=== PATIENT | female | born 1955 | race Caucasian/White ===

== ENCOUNTER 2016-10-02 12:26 | Inpatient (IN) | payer BC, OTHER ==
[2016-10-02] MEDS ORDERED: SODIUM CHLORIDE 0.9% 1,000 ML IV STA (13:04)
[2016-10-02] MEDS ORDERED: PANTOPRAZOLE 40 MG/10 ML VIAL IVP STA (13:04)
--- NOTE | 2016-10-02 13:07 | ED ---
General Adult HPI - General Chief complaint: Abdominal Pain Stated complaint: blood in stool Time Seen by Provider: 10/02/16 12:48 Source: patient, RN notes reviewed Mode of arrival: ambulatory Limitations: no limitations - History of Present Illness Initial comments: Patient's a 61-year-old female who presents emergency room today with chief complaint of loose stool over the last or days. Does admit that over the last day she believe she seen some evidence of blood. States she's been something that's been pink color in the toilet. She does admit that time she's felt nauseated. Does admit some cramping in her abdomen both on left right sides. States she's never had similar symptoms in the this in the past. She states she 's not on any medications at home. Denies any past mental history. Denies any other complaints. Patient denies any recent fever, chills, shortness of breath, chest pain, back pain, abdominal pain, nausea or vomiting, numbness or tingling , dysuria or hematuria, constipation or diarrhea, headaches or visual changes, or any other complaints. - Related Data Home Medications Medication Instructions Recorded Confirmed Dorzolamide 2% [Trusopt 2%] 1 drops BOTH EYES BID 10/02/16 10/02/16 Lactobacillus Acidophilus 1 tab PO DAILY 10/02/16 10/02/16 [Acidophilus] Allergies Allergy/AdvReac Type Severity Reaction Status Date / Time No Known Allergies Allergy Verified 10/02/16 13:38 Review of Systems ROS Statement: Those systems with pertinent positive or pertinent negative responses have been documented in the HPI. ROS Other: All systems not noted in ROS Statement are negative. Past Medical History Past Medical History: No Reported History History of Any Multi-Drug Resistant Organisms: None Reported Past Surgical History: Section Additional Past Surgical History / Comment(s): polyp removal. Past Psychological History: No Psychological Hx Reported Smoking Status: Never smoker Past Alcohol Use History: Occasional Past Drug Use History: None Reported General Exam - General Exam Comments Initial Comments: General: The patient is awake and alert, in no distress, and does not appear acutely ill. Eye: Pupils are equal, round and reactive to light, extra-ocular movements are intact. No nystagmus. There is normal conjunctiva bilaterally. No signs of icterus. Ears, nose, mouth and throat: There are moist mucous membranes and no oral lesions. Neck: The neck is supple, there is no tenderness or JVD. Cardiovascular: There is a regular rate and rhythm. No murmur, rub or gallop is appreciated. Respiratory: Lungs are clear to auscultation, respirations are non-labored, breath sounds are equal. No wheezes, stridor, rales, or rhonchi. Gastrointestinal: Normal appearance and. Normal bowel sounds. Abdomen soft on palpation. Mild tenderness both left and right side of the abdomen on palpation. No rebound tenderness. No guarding. No CVA tenderness. Musculoskeletal: Normal ROM, no tenderness. Strength 5/5. Sensation intact. Pulses equal bilaterally 2+. Neurological: A&O x 3. CN II-XII intact, There are no obvious motor or sensory deficits. Coordination appears grossly intact. Speech is normal. Skin: Skin is warm and dry and no rashes or lesions are noted. Psychiatric: Cooperative, appropriate mood & affect, normal judgment. Limitations: no limitations Course Vital Signs 10/02/16 10/02/16 12:33 15:41 Temperature 97.2 F L Pulse Rate 88 68 Respiratory 16 16 Rate Blood Pressure 140/87 139/67 O2 Sat by Pulse 100 99 Oximetry Medical Decision Making - Medical Decision Making Patient's CT reviewed shows possible colitis. Bradycardia enhancement of the na pain on the left may represent a shunt phenomena. Possible left adrenal adenoma also seen. Hepatomegaly, and fatty protrusion of the liver. Patient's labs reviewed. Positive guaiac. Case discussed with attending physician Dr. Cramer who did discuss case with [facility] physician Dr. Mirza. Patient will be admitted to the hospital. She is aware of plan states understanding. - Lab Data Result diagrams: 10/02/16 13:30 10/02/16 13:30 Lab Results 10/02/16 10/02/16 10/02/16 Range/Units 13:10 13:10 13:30 WBC (3.8-10.6) k/uL RBC (3.80-5.40) m/uL Hgb (11.4-16.0) gm/dL Hct (34.0-46.0) % MCV (80.0-100.0) fL MCH (25.0-35.0) pg MCHC (31.0-37.0) g/dL RDW (11.5-15.5) % Plt Count (150-450) k/uL Neutrophils % (Manual) % Band Neutrophils % % Lymphocytes % (Manual) % Monocytes % (Manual) % Eosinophils % (Manual) % Neutrophils # (Manual) (1.3-7.7) k/uL Lymphocytes # (Manual) (1.0-4.8) k/uL Monocytes # (Manual) (0-1.0) k/uL Eosinophils # (Manual) (0-0.7) k/uL Nucleated RBCs (0-0) /100 WBC Manual Slide Review Large Platelets Anisocytosis (manual) PT (9.0-12.0) sec INR (<1.1) APTT (22.0-30.0) sec Sodium 140 (137-145) mmol/L Potassium 3.4 L (3.5-5.1) mmol/L Chloride 99 (98-107) mmol/L Carbon Dioxide 30 (22-30) mmol/L Anion Gap 11 mmol/L BUN 8 (7-17) mg/dL Creatinine 0.70 (0.52-1.04) mg/dL Est GFR (MDRD) Af Amer >60 (>60 ml/min/1.73 sqM) Est GFR (MDRD) Non-Af >60 (>60 ml/min/1.73 sqM) Glucose 105 H (74-99) mg/dL Calcium 10.0 (8.4-10.2) mg/dL Total Bilirubin 0.9 (0.2-1.3) mg/dL AST 24 (14-36) U/L ALT 29 (9-52) U/L Alkaline Phosphatase 76 (38-126) U/L Total Protein 7.7 (6.3-8.2) g/dL Albumin 4.4 (3.5-5.0) g/dL Amylase 40 (30-110) U/L Lipase 128 (23-300) U/L Urine Color Urine Appearance (Clear) Urine pH (5.0-8.0) Ur Specific [place] (1.001-1.035) Urine Protein (Negative) Urine Glucose (UA) (Negative) Urine Ketones (Negative) Urine Blood (Negative) Urine Nitrite (Negative) Urine Bilirubin (Negative) Urine Urobilinogen (<2.0) mg/dL Ur Leukocyte Esterase (Negative) Urine RBC (0-5) /hpf Urine WBC (0-5) /hpf Ur Squamous Epith Cells (0-4) /hpf Urine Mucus (None) /hpf Stool Occult Blood Positive H (Negative) C. difficile (EIA) Intrp Negative (Negative) 10/02/16 10/02/16 10/02/16 Range/Units 13:30 13:30 15:40 WBC 7.6 (3.8-10.6) k/uL RBC 4.22 (3.80-5.40) m/uL Hgb 13.8 (11.4-16.0) gm/dL Hct 39.9 (34.0-46.0) % MCV 94.7 (80.0-100.0) fL MCH 32.8 (25.0-35.0) pg MCHC 34.6 (31.0-37.0) g/dL RDW 12.8 (11.5-15.5) % Plt Count 209 (150-450) k/uL Neutrophils % (Manual) 57.0 % Band Neutrophils % 6.0 % Lymphocytes % (Manual) 21.0 % Monocytes % (Manual) 15.0 % Eosinophils % (Manual) 1.0 % Neutrophils # (Manual) 4.8 (1.3-7.7) k/uL Lymphocytes # (Manual) 1.6 (1.0-4.8) k/uL Monocytes # (Manual) 1.1 H (0-1.0) k/uL Eosinophils # (Manual) 0.1 (0-0.7) k/uL Nucleated RBCs 0 (0-0) /100 WBC Manual Slide Review Performed Large Platelets Present Anisocytosis (manual) Present PT 10.0 (9.0-12.0) sec INR 1.0 (<1.1) APTT 23.8 (22.0-30.0) sec Sodium (137-145) mmol/L Potassium (3.5-5.1) mmol/L Chloride (98-107) mmol/L Carbon Dioxide (22-30) mmol/L Anion Gap mmol/L BUN (7-17) mg/dL Creatinine (0.52-1.04) mg/dL Est GFR (MDRD) Af Amer (>60 ml/min/1.73 sqM) Est GFR (MDRD) Non-Af (>60 ml/min/1.73 sqM) Glucose (74-99) mg/dL Calcium (8.4-10.2) mg/dL Total Bilirubin (0.2-1.3) mg/dL AST (14-36) U/L ALT (9-52) U/L Alkaline Phosphatase (38-126) U/L Total Protein (6.3-8.2) g/dL Albumin (3.5-5.0) g/dL Amylase (30-110) U/L Lipase (23-300) U/L Urine Color Yellow Urine Appearance Clear (Clear) Urine pH 5.5 (5.0-8.0) Ur Specific [place] 1.041 H (1.001-1.035) Urine Protein Trace H (Negative) Urine Glucose (UA) Negative (Negative) Urine Ketones Negative (Negative) Urine Blood Trace H (Negative) Urine Nitrite Negative (Negative) Urine Bilirubin Negative (Negative) Urine Urobilinogen <2.0 (<2.0) mg/dL Ur Leukocyte Esterase Negative (Negative) Urine RBC 1 (0-5) /hpf Urine WBC <1 (0-5) /hpf Ur Squamous Epith Cells <1 (0-4) /hpf Urine Mucus Rare H (None) /hpf Stool Occult Blood (Negative) C. difficile (EIA) Intrp (Negative) Disposition Clinical Impression: Colitis Disposition: ADMITTED IP TO THIS HOSP Condition: Good Time of Disposition: 16:01
[2016-10-02 13:44] LABS: Aty Lym Flag Slight; CH 34.1; CHCM 36.2; HCT 39.9 % (34.0-46.0); HGB 13.8 gm/dL (11.4-16.0); MCH 32.8 pg (25.0-35.0); MCHC 34.6 g/dL (31.0-37.0); MCV 94.7 fL (80.0-100.0); Mean Platelet Volume 7.3; RBC 4.22 m/uL (3.80-5.40); RDW 12.8 % (11.5-15.5); WBC 7.6 k/uL (3.8-10.6); WBC (Perox) 7.56
[2016-10-02 13:53] LABS: Partial Thromboplastin Time 23.8 sec (22.0-30.0)
[2016-10-02 13:57] LABS: ALT 29 U/L (9-52); AST 24 U/L (14-36); Alkaline Phosphatase 76 U/L (38-126); Amylase 40 U/L (30-110); Anion Gap 11 mmol/L; Blood Urea Nitrogen 8 mg/dL (7-17); Carbon Dioxide 30 mmol/L (22-30); Chloride 99 mmol/L (98-107); Glucose 105 mg/dL (74-99); Non-African American GFR(MDRD) >60 (>60 ml/min/1.73 sqM); Potassium 3.4 mmol/L (3.5-5.1); Sodium 140 mmol/L (137-145); Total Bilirubin 0.9 mg/dL (0.2-1.3); Total Protein 7.7 g/dL (6.3-8.2)
--- NOTE | 2016-10-02 14:05 | XR ---
EXAMINATION TYPE: XR KUB DATE OF EXAM: 10/02/2016 2:01 PM COMPARISON: NONE HISTORY: Abdominal pain, diarrhea TECHNIQUE: One view abdominal series FINDINGS: The osseous structures are intact. The bowel gas pattern is nonspecific. There are prominent small b owel loops in the mid and upper abdomen. There is partial eventration of the left hemidiaphragm. Calc ification the pelvis or vascular. Arthropathy of the hips noted. IMPRESSION: 1. Nonspecific abdomen. Prominent bowel loops or may be on the basis of an enteritis or ileus correl ate clinically.
[2016-10-02 14:15] LABS: Add Differential Manual Differential
[2016-10-02 14:18] LABS: Manual Review Performed; Nucleated Red Blood Cells 0 /100 WBC (0-0); Total Cells Counted 100
[2016-10-02 14:19] LABS: Large Platelets Present
[2016-10-02] MEDS ORDERED: RX INFO: IV CONTRAST WAS GIVEN 1 EACH MISC MISCELLANE PRN (14:40)
--- NOTE | 2016-10-02 15:43 | CT ---
EXAMINATION TYPE: CT abdomen pelvis w con DATE OF EXAM: 10/02/2016 3:28 PM COMPARISON: Plain film same date HISTORY: Diarrhea x 6 days with nausea and generalized abdominal pain. CT DLP: 452.40 mGycm Automated exposure control for dose reduction was used. TECHNIQUE: Helical acquisition of images was performed from the lung bases through the pelvis. CONTRAST: Performed without Oral Contrast and with IV Contrast, patient injected with 100 mL of Omnipaque 300. FINDINGS: LUNG BASES: No significant abnormality is appreciated. LIVER/GB: Low-attenuation focus within the left lobe of the liver measures 4 mm on axial image 18 of questionable clinical significance. The liver shows low attenuation and is enlarged compatible with f atty infiltration. Gallbladder is normal. PANCREAS: No significant abnormality is seen. SPLEEN: No significant abnormality is seen. ADRENALS: Left adrenal gland shows a 19 mm low dense focus which statistically is likely to represent an adenoma. Right adrenal gland is normal. KIDNEYS: No significant abnormality is seen. RETROPERITONEAL ADENOPATHY: None visualized REPRODUCTIVE ORGANS: There is asymmetric enhancement, the left gonadal vein shows marked increased at tenuation as compared to the right and a gonadal vein on the left is dilated. Left adnexal region enh ances markedly. URINARY BLADDER: No significant abnormality is seen. PELVIC ADENOPATHY: None visualized. OSSEOUS STRUCTURES: Some degenerative disc changes are present in the lower lumbar spine. BOWEL: The colon shows wall thickening. Minimal free fluid in the pelvis. OTHER: Aorta shows normal caliber. IMPRESSION: CORRELATE FOR POSSIBLE COLITIS. BRIGHT ENHANCEMENT OF THE ANNALEE VEIN ON THE LEFT MAY REPRESENT A [place] PHENOMENON. POSSIBLE LEFT ADRENAL ADENOMA, MRI COULD BE PERFORMED FOR ADDITIONAL EVALUATION. HEPAT OMEGALY, FATTY INFILTRATION OF THE LIVER.
[2016-10-02 15:56] LABS: Appearance,Urine Clear (Clear); Bilirubin,Urine Negative (Negative); Glucose,Urine (UA) Negative (Negative); Ketones,Urine Negative (Negative); Leukocyte Esterase,Urine Negative (Negative); Mucus,Urine Rare /hpf; Nitrite,Urine Negative (Negative); PH, Urine 5.5 (5.0-8.0); Particle Count 872; Protein,Urine Trace (Negative); RBC,Urine 1 /hpf (0-5); Specific Gravity,Urine 1.041 (1.001-1.035); Squamous Epithelial Cell,Urine <1 /hpf (0-4); UA Billing (MACRO vs. MICRO) MICRO; Urobilinogen,Urine <2.0 mg/dL (<2.0); WBC,Urine <1 /hpf (0-5)
[2016-10-02] MEDS ORDERED: ACETAMINOPHEN TAB 325 MG TAB PO PRN (16:01)
[2016-10-02] MEDS ORDERED: SODIUM CHLORIDE 0.9% 1,000 ML IV ONE (16:01)
[2016-10-02] MEDS ORDERED: ONDANSETRON 4 MG/2 ML VIAL IVP PRN (16:01)
[2016-10-02] MEDS ORDERED: HYDROmorphone 1 MG/ML 1 ML SYRINGE IV PRN (16:01)
[2016-10-02] MEDS ORDERED: NALOXONE 0.4 MG/ML 1 ML VIAL IV PRN (16:01)
[2016-10-02] MEDS ORDERED: LEVOFLOXACIN 500MG-D5W PMX 500 MG in DEXTROSE/WATER 1 100ML.BAG IVPB STA (16:03)
[2016-10-02] MEDS ORDERED: metroNIDAZOLE-NS PMX 500 MG in SALINE 1 100ML.BAG IVPB STA (16:03)
[2016-10-02] MEDS ORDERED: TEMAZEPAM 15 MG CAP PO PRN (18:14)
[2016-10-02] MEDS ORDERED: HYDROmorphone 1 MG/ML 1 ML SYRINGE IVP PRN (18:14)
[2016-10-02] MEDS ORDERED: HYDROcodone/APAP 5-325MG 1 EACH TAB PO PRN (18:14)
--- NOTE | 2016-10-02 21:33 | HP ---
DATE OF ADMISSION: 10/02/2016 CHIEF COMPLAINT: Abdominal pain as well as GI bleeding. HISTORY OF PRESENT ILLNESS: This 61-year-old woman with a past medical history of multiple medical problems, including fibroids, history of migraines, history of cardiac arrhythmia, history of section, history of colonoscopy, being followed by Dr. Cowan in the outpatient setting, was also complaining of significant EtOH. The patient apparently takes at least 3 or 4 drinks per day, according to her. The patient was not feeling well over the past 3 to 4 days, with a sore throat and upper respiratory symptoms, and subsequently patient was noted to have diarrhea, some blood in the stools, and patient came to [facility] and was admitted for further evaluation and treatment. CT scan of the abdomen was done which showed possible colitis as well as bright enhancement of the veins on the left; may represent a shunt phenomenon. Left adrenal adenoma was also noted. MRI was also recommended, and multiple other abnormalities, including fat infiltration and hepatomegaly, were also suspected. The patient was admitted for further evaluation and treatment. There is no history of any fever, rigor, or chills. No history of any headache, loss of consciousness, seizures. PAST MEDICAL HISTORY: 1. History of fibroids. 2. History of migraines. 3. History of cardiac catheterization. 4. section. 5. Tonsillectomy. 6. History of tubal ligation. HOME MEDICATIONS: 1. Lactobacillus acidophilus. 2. Trusopt 2%. ALLERGIES: NONE. FAMILY HISTORY: History of CAD and memory impairment, Parkinson's. SOCIAL HISTORY: History of alcohol. Previous history of smoking. REVIEW OF SYSTEMS: ENT: No diminished hearing. No diminished vision. CARDIOVASCULAR SYSTEM: No angina, palpitations. RESPIRATORY: No cough, hemoptysis. GI: No nausea, vomiting. : No dysuria. NERVOUS SYSTEM: No numbness or weakness. ALLERGY/IMMUNOLOGY: No asthma or hayfever. MUSCULOSKELETAL: As mentioned earlier. HEMATOLOGY/ONCOLOGY: No history of anemia. ENDOCRINE: No history of diabetes, hypothyroidism. CONSTITUTIONAL: As mentioned earlier. DERMATOLOGY: Negative. RHEUMATOLOGY: Negative. PSYCHIATRY: As mentioned earlier. PHYSICAL EXAMINATION: Patient is alert and oriented x3. Pulse is 69, blood pressure 138/93, respiration 20, temperature 97.7, pulse ox 98% on room air. HEENT: Conjunctivae normal. Oral mucosa moist. NECK: No jugular venous distention. No carotid bruit. No lymph node enlargement. CARDIOVASCULAR SYSTEM: S1, S2 muffled. No S3. No S4. RESPIRATORY SYSTEM: Breath sounds diminished at the bases. No rhonchi. No crackles. ABDOMEN: Soft. Mild diffuse discomfort to palpation. No guarding. No rigidity. No mass palpable. No ascites. LEGS: No edema. No swelling. NERVOUS SYSTEM: Higher functions as mentioned earlier. Moves all 4 limbs. No focal motor or sensory deficit. LYMPHATICS: No lymph node palpable in neck, axillae or groin. SKIN: No ulcer, rash, bleeding. LABS: CBC within normal limits. Otherwise, PT is 10. INR is 1. Potassium is 3.4. UA noted. Stool OB is positive. Serial negative. ASSESSMENT: 1. Diarrhea, lower gastrointestinal bleed for evaluation; possible acute colitis. 2. History of ethanol. 3. Hypokalemia. 4. History of fibroids. 5. Fatty infiltration of the liver. 6. Left adrenal adenoma. 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 Rule out shunt phenomenon. 8. History of migraines. 9. History of cardiac arrhythmia. 10. History of glaucoma. 11. FULL CODE. RECOMMENDATIONS AND DISCUSSION: In this 61-year-old woman who presented with multiple complex medical issues, we will monitor the patient closely, continue the current medications, continue with symptomatic treatment. I recommend empiric antibiotics for the colitis. Flagyl has been initiated and Levaquin. Otherwise, I would recommend a gastroenterology consultation. I would also recommend potassium supplementation. Monitor fluid closely. Symptomatic treatment will be provided. Guarded prognosis because of multiple complex medical issues. Further recommendations to follow. Chronic liver damage is also a possibility, but cirrhosis seems to be unlikely at this time based on the chemistry. However, the CT finding is a concern; it could be a congenital abnormality as well. I would recommend close followup with Gastroenterology. Continue to monitor. See orders for further details. Discussed with the staff and patient, who understands and agrees. A copy of this dictation is being forwarded to Dr. Cowan, who is the primary physician. [facility] HOSPITALMariaelena
[2016-10-02] MEDS: DORZOLAMIDE HCL 2% DROPS 10 ML BTL BOTH EYES SCH (22:05)
[2016-10-03] MEDS: metroNIDAZOLE-NS PMX 500 MG in SALINE 1 100ML.BAG IVPB SCH ×3 (00:56→15:54)
[2016-10-03] MEDS: DORZOLAMIDE HCL 2% DROPS 10 ML BTL BOTH EYES SCH ×3 (07:48→22:19)
[2016-10-03] MEDS: PANTOPRAZOLE 40 MG/10 ML VIAL IV SCH (07:48)
[2016-10-03] MEDS: LACTOBACILLUS ACIDOPH & BULGAR 1 EACH PACKET PO SCH (07:49)
[2016-10-03 08:06] LABS: Basophils % (A) 1 %; CH 34.1; CHCM 35.6; Eosinophils # (A) 0.1 k/uL (0-0.7); Eosinophils % (A) 1 %; HCT 36.9 % (34.0-46.0); HDW 2.87; HGB 12.6 gm/dL (11.4-16.0); Luc # (Auto) 0.28; Luc % (Auto) 4; Lymphocytes # (A) 1.3 k/uL (1.0-4.8); Lymphocytes % (A) 20 %; MCH 32.8 pg (25.0-35.0); MCV 96.3 fL (80.0-100.0); Mean Platelet Volume 8.2; Monocytes # (A) 0.4 k/uL (0-1.0); Monocytes % (A) 6 %; Neutrophils # (A) 4.5 k/uL (1.3-7.7); Neutrophils % (A) 68 %; RBC 3.83 m/uL (3.80-5.40); RDW 12.8 % (11.5-15.5); WBC 6.6 k/uL (3.8-10.6); WBC (Perox) 7.29
[2016-10-03 08:29] LABS: ALT 23 U/L (9-52); AST 20 U/L (14-36); Alkaline Phosphatase 53 U/L (38-126); Anion Gap 11 mmol/L; Blood Urea Nitrogen 3 mg/dL (7-17); Calcium 9.2 mg/dL (8.4-10.2); Carbon Dioxide 28 mmol/L (22-30); Chloride 103 mmol/L (98-107); Glucose 102 mg/dL (74-99); Magnesium 1.4 mg/dL (1.6-2.3); Non-African American GFR(MDRD) >60 (>60 ml/min/1.73 sqM); Potassium 3.6 mmol/L (3.5-5.1); Sodium 142 mmol/L (137-145); Total Bilirubin 0.9 mg/dL (0.2-1.3); Total Protein 6.8 g/dL (6.3-8.2)
[2016-10-03 10:24] VITALS: BMI 24.9
[2016-10-03] MEDS: LEVOFLOXACIN 500MG-D5W PMX 500 MG in DEXTROSE/WATER 1 100ML.BAG IVPB SCH (17:47)
[2016-10-04] MEDS: metroNIDAZOLE-NS PMX 500 MG in SALINE 1 100ML.BAG IVPB SCH ×4 (00:35→23:20)
[2016-10-04] MEDS: DORZOLAMIDE HCL 2% DROPS 10 ML BTL BOTH EYES SCH ×2 (08:29→21:04)
[2016-10-04] MEDS: PANTOPRAZOLE 40 MG/10 ML VIAL IV SCH (09:21)
[2016-10-04] MEDS: LACTOBACILLUS ACIDOPH & BULGAR 1 EACH PACKET PO SCH (09:21)
[2016-10-04 09:59] LABS: Basophils # (A) 0.1 k/uL (0-0.2); Basophils % (A) 1 %; CH 33.5; Eosinophils # (A) 0.1 k/uL (0-0.7); Eosinophils % (A) 2 %; HCT 35.2 % (34.0-46.0); HDW 2.91; HGB 11.9 gm/dL (11.4-16.0); Luc # (Auto) 0.19; Luc % (Auto) 3; Lymphocytes # (A) 1.4 k/uL (1.0-4.8); Lymphocytes % (A) 23 %; MCH 32.4 pg (25.0-35.0); MCHC 33.7 g/dL (31.0-37.0); MCV 96.1 fL (80.0-100.0); Mean Platelet Volume 7.1; Monocytes # (A) 0.4 k/uL (0-1.0); Monocytes % (A) 6 %; Neutrophils % (A) 66 %; RBC 3.67 m/uL (3.80-5.40); RDW 12.8 % (11.5-15.5); WBC 6.1 k/uL (3.8-10.6); WBC (Perox) 6.61
[2016-10-04 10:06] LABS: Anion Gap 9 mmol/L; Blood Urea Nitrogen 3 mg/dL (7-17); Calcium 9.2 mg/dL (8.4-10.2); Carbon Dioxide 26 mmol/L (22-30); Chloride 109 mmol/L (98-107); Glucose 101 mg/dL (74-99); Non-African American GFR(MDRD) >60 (>60 ml/min/1.73 sqM); Potassium 3.5 mmol/L (3.5-5.1); Sodium 144 mmol/L (137-145)
--- NOTE | 2016-10-04 10:19 | PN ---
DATE OF SERVICE: 10/03/2016 This 61-year-old woman who was admitted with abdominal pain and diarrhea, was thought to have acute colitis. Gastroenterology is following the patient closely. Otherwise, the patient also had a left adrenal adenoma, possibly benign in nature. The patient also had cardinal vein, possibly shunt phenomenon according to the chart. PAST MEDICAL HISTORY: Reviewed. REVIEW OF SYSTEM: CARDIOVASCULAR: No angina or palpitations. GI: As mentioned. : As mentioned. No distention. NERVOUS SYSTEM: No deficits. MEDICATIONS: Reviewed and include: 1. Tylenol 650 every 6 p.r.n. 2. Tippo 5 mg p.r.n. 3. Trusopt 1 drop b.i.d. 4. Dilaudid 0.5 mg every 6 hours. 5. Lactinex 1 daily. 6. Levaquin 500 mg daily. 7. Flagyl 500 mg every 8 hours. 8. Narcan. 9. Zofran. 10. Protonix. 11. Restoril. PHYSICAL EXAMINATION: Alert, oriented x3. VITAL SIGNS: Pulse 80, blood pressure 120/84, respirations 16, temperature 98.6, pulse ox 97% on room air. HEENT: Conjunctivae normal. NECK: No JVD. CARDIOVASCULAR: S1 and S2 muffled. LUNGS: Breath sounds diminished at the bases. Bilateral scattered rhonchi and crackles. ABDOMEN: Soft. Mild diffuse discomfort. No guarding or rigidity. No masses palpable. EXTREMITIES: Legs no edema. NERVOUS SYSTEM: Higher functions as mentioned. Moves all extremities. No focal deficits. LYMPHATICS: No lymph nodes palpable in the neck, axillae or groin. LABS: WBC 6.3, hemoglobin is 12.6, BUN 3, glucose 102. Drug screen positive for urine and opiates and influence is negative. ASSESSMENT: 1. Diarrhea, lower gastrointestinal bleeding, possible acute colitis. 2. History of EtOH. 3. Hypokalemia. 4. History of fibroids. 5. Fatty infiltration of the liver. 6. Left adrenal adenoma, possibly benign. 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 8. History of migraines. 9. Rule out cirrhosis of the liver. 10. History of cardiac arrhythmia. 11. History of glaucoma. 12. FULL CODE. RECOMMENDATIONS: Recommend to continue current medications, monitoring and symptomatic treatment. Otherwise continue with fluids and electrolytes closely. Empiric antibiotics. Otherwise, repeat labs. Gastroenterology evaluation with Dr. Cespedes. Discussed, the patient understands. Further recommendations to follow.
[2016-10-04] MEDS ORDERED: MAGNESIUM HYDROXIDE 2,400 MG/10 ML CUP PO PRN (15:07)
[2016-10-04] MEDS ORDERED: DOCUSATE 100 MG CAP PO PRN (15:07)
[2016-10-04] MEDS ORDERED: FUROSEMIDE 10 MG/ML 2 ML VIAL IV ONE (16:55)
[2016-10-04] MEDS: LEVOFLOXACIN 500MG-D5W PMX 500 MG in DEXTROSE/WATER 1 100ML.BAG IVPB SCH (19:20)
[2016-10-05 07:39] VITALS: BP 107/63; PULSE 62; RESP 20; TEMP 98.3
[2016-10-05] MEDS: DORZOLAMIDE HCL 2% DROPS 10 ML BTL BOTH EYES SCH (08:11)
[2016-10-05] MEDS: PANTOPRAZOLE 40 MG/10 ML VIAL IV SCH (08:11)
[2016-10-05] MEDS: metroNIDAZOLE-NS PMX 500 MG in SALINE 1 100ML.BAG IVPB SCH (08:12)
[2016-10-05] MEDS: LACTOBACILLUS ACIDOPH & BULGAR 1 EACH PACKET PO SCH (08:12)
[2016-10-05 09:49] LABS: Basophils # (A) 0.1 k/uL (0-0.2); Basophils % (A) 1 %; CH 33.6; CHCM 35.1; Eosinophils # (A) 0.1 k/uL (0-0.7); Eosinophils % (A) 2 %; HCT 35.5 % (34.0-46.0); HDW 2.89; HGB 12.2 gm/dL (11.4-16.0); Luc # (Auto) 0.19; Luc % (Auto) 3; Lymphocytes # (A) 1.5 k/uL (1.0-4.8); Lymphocytes % (A) 26 %; MCHC 34.3 g/dL (31.0-37.0); MCV 96.1 fL (80.0-100.0); Mean Platelet Volume 6.9; Monocytes # (A) 0.3 k/uL (0-1.0); Monocytes % (A) 6 %; Neutrophils # (A) 3.5 k/uL (1.3-7.7); Neutrophils % (A) 62 %; RDW 12.9 % (11.5-15.5); WBC 5.6 k/uL (3.8-10.6); WBC (Perox) 5.86
--- NOTE | 2016-10-05 10:38 | PN ---
DATE OF SERVICE: 10/04/2016 This 61-year-old woman who was admitted with diarrhea, lower gastrointestinal bleeding, also had possible acute colitis, the patient also was history of ETOH also. No chest or palpitation. No fever. On exam alert and oriented times three. Pulse 68, blood pressure 127/60, respiratory rate 16, temperature 97.4. Pulse ox 99% on room air. HEENT: Conjunctivae normal. NECK: No jugular venous distention. CARDIOVASCULAR: S1, S2 muffled. RESPIRATORY: Breath sounds diminished in the bases. No rhonchi, no crackles. ABDOMEN: Soft, nontender. Mild diffuse discomfort. Nontender. No mass palpable. LEGS: No edema. No swelling. CENTRAL NERVOUS SYSTEM: No focal deficits. LABS: WBC 6.9. Hemoglobin 11.9. Magnesium is not available. Drug screen is negative. Only positive for opiates. ASSESSMENT: 1. Diarrhea, lower gastrointestinal bleeding with possible acute colitis. 2. History of ETOH. 3. Hypokalemia. 4. Hypomagnesemia. 5. History of fibroids. 6. History of fatty infiltration of the liver. 7. No evidence of cirrhosis of the liver clinical labs. 8. Left adrenal adenoma, possibly benign. 10. History of migraines. 11. History of cardiac arrhythmias. 12. History of glaucoma. 13. FULL CODE. RECOMMENDATIONS AND DISCUSSION: Recommend to continue current medications, continue with monitoring, symptomatic treatment. I recommend to continue current medications and closely follow. Repeat magnesium. Further recommendations to follow. Increase ambulation. Increase diet. Symptomatic treatment for constipation. Given one dose of Lasix. MTDD
[2016-10-05 10:54] LABS: Anion Gap 10 mmol/L; Blood Urea Nitrogen 6 mg/dL (7-17); Calcium 9.3 mg/dL (8.4-10.2); Carbon Dioxide 30 mmol/L (22-30); Chloride 102 mmol/L (98-107); Glucose 97 mg/dL (74-99); Magnesium 1.3 mg/dL (1.6-2.3); Non-African American GFR(MDRD) >60 (>60 ml/min/1.73 sqM); Potassium 4.4 mmol/L (3.5-5.1); Sodium 142 mmol/L (137-145)
--- NOTE | 2016-10-06 14:52 | DS ---
DATE OF ADMISSION: 10/02/2016 DATE OF DISCHARGE: 10/05/2016 FINAL DIAGNOSES: 1. Diarrhea with lower gastrointestinal bleeding with possible acute colitis with Campylobacter jejuni. 2. History of EtOH. 3. Hypokalemia. 4. Hypomagnesemia. 5. History of fibroids. 6. History of fatty infiltration of liver. 7. No evidence of cirrhosis of liver currently. 8. Left adrenal adenoma, possibly benign, for outpatient followup. 9. History of migraine. 10. History of cardiac arrhythmia. 11. History of glaucoma. 12. FULL CODE. DISCHARGE DISPOSITION: The patient will be discharged in a stable condition with guarded prognosis. HISTORY OF PRESENT ILLNESS: This 61-year-old woman with a past medical history of multiple medical problems was admitted with diarrhea, lower GI bleed and possible acute colitis. Campylobacter jejuni was confirmed on the cultures. The patient was treated in conjunction with Gastroenterology, recommended outpatient followup. Patient followed by Dr. Cowan in the outpatient setting. On exam, vital signs stable. CARDIOVASCULAR: S1 and S2 muffled. ABDOMEN: Soft, nontender. No mass palpable. NERVOUS SYSTEM: No focal deficit. DISCHARGED ADVICE AND MEDICATIONS: 1. Diet is soft, low residue. 2. Follow up with Dr. Cowan in 2 to 3 days. 3. Followup with Dr. Cespedes is recommended. 4. Medications are: a. Cipro 500 mg p.o. b.i.d. for 10 days. b. Trusopt 1 drop both eyes daily. c. Lactobacillus acidophilus 1 p.o. daily. d. Flagyl 500 mg p.o. daily for 10 days.
== END 2016-10-05 14:04 | disposition home or self-care (01) | DRG 373 ==
LOC: EC 12:26 → 4MS4W 16:11
PROVIDERS: ADMIT Hospitalist; ATTEND Hospitalist
DX: A04.5 Campylobacter enteritis (principal); E83.42 Hypomagnesemia; K76.0 Fatty (change of) liver, not elsewhere classified; D35.02 Benign neoplasm of left adrenal gland; E87.6 Hypokalemia; H40.9 Unspecified glaucoma; D25.9 Leiomyoma of uterus, unspecified; G43.909 Migraine, unspecified, not intractable, without status migrainosus; Z87.891 Personal history of nicotine dependence; Z82.49 Family history of ischemic heart disease and other diseases of the circulatory system
CPT/HCPCS: 36415; 74000; 74177; 80048; 80053; 80306; 81001; 82150; 82272; 83690; 83735; 85025; 85610; 85730; 87045; 87046; 87324; 87502; 87798; 96361; 96374; 99285

== ENCOUNTER → 2016-10-30 | Outpatient (CLI) | payer BC, OTHER ==
--- NOTE | 2016-10-30 14:38 | MR ---
EXAMINATION TYPE: MR abdomen wo/w con DATE OF EXAM: 10/30/2016 2:24 PM COMPARISON: CT abdomen pelvis 10/02/2016 HISTORY: Hepatomegaly, not elsewhere classified CONTRAST: Standard multiplanar, multisequence MRI departmental protocol utilizing 15 mL intravenous MultiHance gadolinium contrast. FINDINGS: There is mild fatty hepatic infiltration identified. 3 tiny simple cysts are noted within t he periphery of the liver within the left hepatic lobe measuring up to 4 mm. No solid lesions are see n of the liver. The gallbladder is unremarkable. No pancreatic lesions are seen. The spleen is of nor mal size. No right adrenal nodule or-lesion identified. Within the left adrenal gland there is a nodu le measuring 1.8 cm greatest dimension which decreases in signal intensity on out of phase imaging in dicating microscopic fat and adrenal adenoma. The kidneys appear symmetric and free of lesion or hydr onephrosis. The abdominal aorta as visualized is within normal limits as well. No evidence for adenop athy. IMPRESSION: 1. Mild fatty hepatic infiltration. 2. Tiny subcentimeter hepatic cysts. 3. Left adrenal adenoma.
== END | disposition home or self-care (01) ==
LOC: RADMRIMAIN 13:18
PROVIDERS: ATTEND Physician Assistant
DX: K76.0 Fatty (change of) liver, not elsewhere classified (principal); K76.89 Other specified diseases of liver
CPT/HCPCS: 74183; A9577

== ENCOUNTER 2019-12-24 06:28 | Emergency (ER) | payer BC, OTHER ==
[2019-12-24 06:36] VITALS: BP 147/95; PULSE 108; RESP 20; TEMP 98
--- NOTE | 2019-12-24 07:02 | ED ---
General Adult HPI - General Chief complaint: Extremity Injury, Upper Stated complaint: Left elbow pain Time Seen by Provider: 12/24/19 06:41 Source: patient, RN notes reviewed, old records reviewed Mode of arrival: ambulatory Limitations: no limitations - History of Present Illness Initial comments: This Patient is a 64-year-old female who presents emergency department today for evaluation for complaints of left elbow pain. Patient reports that he has fractured her left elbow when she was younger and had surgery. She reports since that time she's had no full extension of the elbow. She reports that AFTER lifting a heavy rock over the weekend she has had even decreased range of motion unable to fully flex the elbow. Patient complains of pain with pronation and supination. - Related Data Home Medications Medication Instructions Recorded Confirmed Dorzolamide 2% [Trusopt 2%] 1 drops BOTH EYES BID 10/02/16 10/02/16 Lactobacillus Acidophilus 1 tab PO DAILY 10/02/16 10/02/16 [Acidophilus] Previous Rx's Medication Instructions Recorded Ciprofloxacin HCl [Cipro] 500 mg PO BID #10 tablet 10/05/16 metroNIDAZOLE [Flagyl] 500 mg PO TID #15 tab 10/05/16 Ibuprofen [Motrin] 600 mg PO Q8HR PRN #30 tab 12/24/19 Allergies Allergy/AdvReac Type Severity Reaction Status Date / Time No Known Allergies Allergy Verified 12/24/19 06:35 Review of Systems ROS Statement: Those systems with pertinent positive or pertinent negative responses have been documented in the HPI. ROS Other: All systems not noted in ROS Statement are negative. Past Medical History Past Medical History: No Reported History Additional Past Medical History / Comment(s): FIBROIDS, "NAVAL PEIRCING", DDD(NUMBNESS IN FINGERS AT TIMES", PAST MIGARINES,"ARRYTHMIS" "ONE TOLD ME I HAD MVP AND AMNOTHER TOLD ME I DID'NT", SINUS PROBLEMS, RT BROKEN ANKLE(CASTED), GLAUCOMA BOTH EYES. History of Any Multi-Drug Resistant Organisms: None Reported Past Surgical History: Section, Tonsillectomy, Tubal Ligation Additional Past Surgical History / Comment(s): COLONOSCOPY, polyp removal.C SECTIONS X3, LT ELBOW SX, LASER IRIDOTOMY. Past Anesthesia/Blood Transfusion Reactions: No Reported Reaction Past Psychological History: No Psychological Hx Reported Smoking Status: Current every day smoker Past Alcohol Use History: Daily Past Drug Use History: None Reported - Past Family History Mother Family Medical History: COPD, Memory Impairment Additional Family Medical History / Comment(s): PARKINSONS Father Additional Family Medical History / Comment(s): PACEMAKER, THYROIDECTOMY General Exam - General Exam Comments Initial Comments: 64-year-old female. Alert and oriented. No significant distress. Limitations: no limitations General appearance: alert, in no apparent distress Head exam: Present: atraumatic, normocephalic, normal inspection Eye exam: Present: normal appearance, PERRL, EOMI. Absent: scleral icterus, conjunctival injection, periorbital swelling ENT exam: Present: normal exam, mucous membranes moist Neck exam: Present: normal inspection. Absent: tenderness, meningismus, lymphadenopathy Respiratory exam: Present: normal lung sounds bilaterally. Absent: respiratory distress, wheezes, rales, rhonchi, stridor Cardiovascular Exam: Present: regular rate, normal rhythm, normal heart sounds. Absent: systolic murmur, diastolic murmur, rubs, gallop, clicks GI/Abdominal exam: Present: soft, normal bowel sounds. Absent: distended, tenderness, guarding, rebound, rigid Extremities exam: Present: normal inspection, full ROM, normal capillary refill. Absent: tenderness, pedal edema, joint swelling, calf tenderness Left Upper Arm exam: Present: normal inspection, full ROM Elbow exam: Present: full ROM, tenderness, swelling (over left elbow, patient is unable to flex more than 10 degrees). Absent: normal inspection Forearm Wrist exam: Present: normal inspection, full ROM Hand Wrist exam: Present: normal inspection, full ROM Neuro motor exam: Present: wrist extension intact, thumb opposition intact, thumb IP flexion intact, thumb adduction intact, fingers 2-5 abduction intact Vascular: Present: normal capillary refill Back exam: Present: normal inspection Neurological exam: Present: alert, oriented X3, CN II-XII intact Psychiatric exam: Present: normal affect, normal mood Skin exam: Present: warm, dry, intact, normal color. Absent: rash Course Vital Signs 12/24/19 06:31 Temperature 98 F Pulse Rate 108 H Respiratory 20 Rate Blood Pressure 147/95 O2 Sat by Pulse 100 Oximetry Procedures - Orthopedic Splinting/Casting Injury #1 Side: left Upper Extremity Injury Location: elbow Upper Extremity Immobilizer: sling/shoulder immobilizer, posterior splint, Todd wrap, synthetic pre-padded splint Additional Comments: Patient was reevaluated after spell was applied and is neurovascularly intact. Medical Decision Making - Medical Decision Making This is-year-old female presents emergency department today with left elbow pain after lifting a heavy rock. She reports she's had elbow injuries a candidate requiring surgery. At this time she states that she's had significant pain with pronation supination and unable to flex more than 110 degrees and not able to fullly extend. Patient is neurovascularly intact. She does have a significant effusion over the posterior elbow. X-ray shows degenerative changes with joint effusion. There is evidence of a posterior and anterior fat pad sign. Discussed case with Dr. Mroataya and he reviewed the x-ray is concerning for possible occult fracture. Patient is placed in a posterior sling and splint. Advised Patient to have or so follow-up and was discharged Patient with a short course of plantar medication. All questions answered return parameters were discussed. - Radiology Data Radiology results: report reviewed X-ray shows no acute osseous lesion. There is severe degenerative change with concomitant effusion. Disposition Clinical Impression: Elbow effusion, Left elbow pain Disposition: HOME SELF-CARE Additional Instructions: Patient has follow-up with orthopedic within the week for concern for an occult fracture of the left elbow. Remain in splint until seen by ortho. Patient should take anti-inflammatory medication and the starter pack of pain medication as prescribed. Return to emergency department if any alarming signs or symptoms occur. Prescriptions: Ibuprofen [Motrin] 600 mg PO Q8HR PRN #30 tab PRN Reason: Pain Is patient prescribed a controlled substance at d/c from ED?: No Referrals: Genny Cowan III, MD [Primary Care Provider] - 1-2 days Tiki Goodman DO [Doctor of Osteopathic Medicine] - 1-2 days Time of Disposition: 08:03
[2019-12-24] MEDS ORDERED: KETOROLAC 60 MG/2 ML VIAL IM STA (07:08)
[2019-12-24] MEDS ORDERED: ACET/COD 300 MG/30 MG STARTER PACK 6 TAB BTL PO STA (07:08)
--- NOTE | 2019-12-24 07:36 | XR ---
EXAMINATION TYPE: XR elbow complete LT , 4 VIEWS DATE OF EXAM ORDERED: 12/24/2019 HISTORY: pain. COMPARISON: None. FINDINGS: There are severe degenerative changes within the elbow joint. There is joint space loss an d heterotopic IMPRESSION: 1. NO ACUTE OSSEOUS LESION. 2. SEVERE DEGENERATIVE CHANGE WITH A CONCOMITANT EFFUSION.
== END 2019-12-24 08:12 | disposition home or self-care (01) ==
LOC: EC 06:28
DX: M19.022 Primary osteoarthritis, left elbow (principal); E65 Localized adiposity; F17.200 Nicotine dependence, unspecified, uncomplicated; Z87.81 Personal history of (healed) traumatic fracture
CPT/HCPCS: 73080; 99284; 96372; J1885

== ENCOUNTER → 2020-08-13 | Outpatient (CLI) | payer BC ==
--- NOTE | 2020-08-13 13:15 | MM ---
Reason for exam: screening (asymptomatic). Last mammogram was performed 4 years and 3 months ago. History: Patient is postmenopausal. Physical Findings: A clinical breast exam by your physician is recommended on an annual basis and results should be correlated with mammographic findings. MG Screening Mammo w CAD Bilateral CC and MLO view(s) were taken. Prior study comparison: May 21, 2016, bilateral MG screening mammo w CAD. The breast tissue is heterogeneously dense. This may lower the sensitivity of mammography. Subareolar nodularity right MLO not clearly seen previously. Additional evaluation recommended. ASSESSMENT: Incomplete: need additional imaging evaluation, BI-RAD 0 RECOMMENDATION: Special view mammogram of the right breast. (3D) If lesion persists on supplemental views, image directed ultrasound is recommended. [facility] will attempt to contact patient to return for supplemental views and ultrasound if indicated.
== END | disposition home or self-care (01) ==
LOC: RADMAMWWP 07:09
PROVIDERS: ATTEND Obstetrics & Gynecology Obstetrics
DX: Z12.31 Encounter for screening mammogram for malignant neoplasm of breast (principal)
CPT/HCPCS: 77067

== ENCOUNTER → 2020-08-16 | Outpatient (CLI) | payer BC ==
--- NOTE | 2020-08-16 09:04 | MM ---
Reason for exam: additional evaluation requested from abnormal screening. Last mammogram was performed less than 1 month ago. History: Patient is postmenopausal. Physical Findings: Nurse did not find any significant physical abnormalities on exam. MG Work Up Mamm w CAD RT LM and spot compression MLO view(s) were taken of the right breast. Prior study comparison: August 13, 2020, bilateral MG screening mammo w CAD. May 21, 2016, bilateral MG screening mammo w CAD. The breast tissue is heterogeneously dense. This may lower the sensitivity of mammography. Nodular density less conspicuous although ultrasound is recommended. These results were verbally communicated with the patient and result sheet given to the patient on 08/16/20. ASSESSMENT: Incomplete: need additional imaging evaluation, BI-RAD 0 RECOMMENDATION: Ultrasound of the right breast.
--- NOTE | 2020-08-16 09:05 | USB ---
Reason for exam: additional evaluation requested from abnormal screening. History: Patient is postmenopausal. US Breast Workup Limited RT Right limited breast ultrasound including focal area of concern, retroareolar and axilla demonstrates a 0.6 x 0.5 x 0.3cm oval, cystic cluster at 9 o'clock. These results were verbally communicated with the patient and result sheet given to the patient on 08/16/20. ASSESSMENT: Benign, BI-RAD 2 RECOMMENDATION: Return to routine screening mammogram schedule for both breasts.
== END | disposition home or self-care (01) ==
LOC: RADMAMWWP 07:06
PROVIDERS: ATTEND Obstetrics & Gynecology Obstetrics
DX: R92.8 Other abnormal and inconclusive findings on diagnostic imaging of breast (principal)
CPT/HCPCS: 77065

== ENCOUNTER → 2020-08-23 | Outpatient (CLI) | payer BC ==
--- NOTE | 2020-08-23 09:55 | CT ---
EXAMINATION TYPE: CT adrenal glands wo/w con DATE OF EXAM: 08/23/2020 HISTORY: Disorder of adrenal gland CT DLP: 1204mGycm Automated Exposure Control for Dose Reduction was Utilized. CONTRAST: CT scan of the abdomen is performed without oral and without and with IV Contrast, patient injected w ith 100 mL of Isovue 300. Adrenal gland protocol. COMPARISON: CT abdomen and pelvis October 02, 2016. MRI abdomen October 30, 2016. FINDINGS: LUNG BASES: Mild left basilar linear scarring. LIVER/GB: No significant abnormality is appreciated. PANCREAS: No significant abnormality is seen. SPLEEN: No significant abnormality is seen. ADRENALS: Stable in size 1.8 x 1.3 cm left adrenal mass series 3 image 19. Hounsfield units average 1 9 on noncontrast images. There is enhancement to 33 Hounsfield units on 1 minute postcontrast images and increased enhancement up to 51 Hounsfield units on 15 minute delayed phase images. KIDNEYS: Noncontrast images show no renal calculi. Postcontrast images show symmetrical uptake and ex cretion without hydronephrosis. BOWEL: No significant abnormality is seen. LYMPH NODES: No greater than 1cm abdominal lymph nodes are appreciated. OSSEOUS STRUCTURES: Disc space narrowing lower lumbar levels. Prominent multilevel spurring in the spine. OTHER: Small fat-containing umbilical hernia. Mild calcified plaque of the aorta extends into branch vessels. IMPRESSION: Dynamic imaging of adrenal gland is not consistent with benign etiology, malignant etiolo gy would need to be considered given Hounsfield units greater than 10 on noncontrast images and there is no significant washout. Stability in size from 2017 would favor benign etiology however. Also sig nal dropout on MRI would be consistent with benign lipid rich adenoma. I would consider continued [facility] surveillance.
== END | disposition home or self-care (01) ==
LOC: RADCTMAIN 08:34
PROVIDERS: ATTEND Family Medicine
DX: E27.9 Disorder of adrenal gland, unspecified (principal)
CPT/HCPCS: 74170; Q9967

== ENCOUNTER → 2020-10-04 | Outpatient (CLI) | payer BC ==
--- NOTE | 2020-10-04 08:32 | MR ---
MRI CERVICAL SPINE: CLINICAL HISTORY: Pain and weakness into bilateral upper extremities. Cervical spinal stenosis and my elopathy, hyperreflexia, right C6 radiculopathy per order. TECHNIQUE: Multiplanar, multisequence imaging of the cervical spine is performed without IV contrast. COMPARISON: None. FINDINGS: Sagittal images of the cervical spine show the craniocervical junction to appear within nor mal limits. The cervical and upper thoracic spinal cord is normal in caliber and signal. Slight grad e 1 retrolisthesis C5 on C6. Mild to moderate disc space narrowing C5-C6. Vertebral body heights are maintained. Bone marrow signal overall heterogeneous. Axial images show C2-C3 level to appear within normal limits. Axial images at C3-C4 level show uncovertebral facet degenerative changes along with central disc pro trusion, there is effacement of the anterior thecal sac, there is moderate left and mild right-sided neural foraminal narrowing. Axial images at C4-C5 level show more prominent broad-based disc protrusion with right foraminal comp onent, there is effacement of the anterior thecal sac, there is advanced bilateral neural foraminal n arrowing noted. Axial images at C5-C6 level shows broad-based right paracentral/foraminal disc protrusion effacing an terolateral thecal sac with moderate to advanced right and mild to moderate left-sided neural foramin al narrowing noted. Axial images at C6-C7 level showed broad based posterior disc protrusion mildly effacing the anterior thecal sac and causing mild bilateral neural foraminal narrowing. Axial images at C7-T1 level appear within normal limits. IMPRESSION: Multilevel degenerative changes greatest C4-C5 and C5-C6 levels as detailed above. Subtle spondylolisthesis C5-C6 level.
== END ==
LOC: RADMRIMAIN 07:47
PROVIDERS: ATTEND Psychiatry & Neurology Neurology
DX: M47.22 Other spondylosis with radiculopathy, cervical region (principal); M50.921 Unspecified cervical disc disorder at C4-C5 level; M99.71 Connective tissue and disc stenosis of intervertebral foramina of cervical region; M43.12 Spondylolisthesis, cervical region
CPT/HCPCS: 72141

== ENCOUNTER → 2020-11-05 | Outpatient (CLI) | payer BC ==
--- NOTE | 2020-11-05 08:59 | CT ---
EXAMINATION TYPE: CT elbow LT wo con DATE OF EXAM: 11/05/2020 COMPARISON: None. HISTORY: Elbow injury a few years ago. Issues since. Left elbow pain. Posttraumatic osteoarthritis. L oose body. Malunited distal humeral fracture. CT DLP: 120.7 mGycm Automated exposure control for dose reduction was used. FINDINGS: Exam suboptimal as patient unable to perform complete extension. The olecranon shows trabecular prominence suggesting healed fracture. There is ulnohumeral joint spac e narrowing greatest posterior superior aspect with moderate spurring. Radial head shows moderate to severe narrowing with the distal humerus greatest posterior aspect. The re is prominent spur in its articulation with the proximal ulna coronal image 19 series 10. Radial as pect shows some adjacent small bony formation. Distal humerus shows trabecular prominence consistent with healed fracture deformity greatest over th e radial aspect. There is curvilinear calcification or ossification along the radial aspect of the di stal humerus adjacent to the lateral condyle. Bony formation is seen at this level over the volar asp ect. Tiny calcification or ossification at medial epicondyle distal humerus coronal image 23. Muscle bulk is fairly well preserved. Distal long head of biceps tendon shows normal attachment at th e proximal radius. Distal triceps tendon is intact. There is fairly moderate-size joint effusion exte nding volar and radially measuring roughly 3 cm coronal image 25, axial image 42, and sagittal image 31. IMPRESSION: As above.
== END | disposition home or self-care (01) ==
LOC: RADCTMAIN 08:22
PROVIDERS: ATTEND Orthopaedic Surgery
DX: S52.022D Displaced fracture of olecranon process without intraarticular extension of left ulna, subsequent encounter for closed fracture with routine healing (principal)

== ENCOUNTER → 2021-10-31 | Outpatient (CLI) | payer BC ==
--- NOTE | 2021-10-31 14:24 | CTL ---
EXAMINATION TYPE: CT Low Dose Lung DATE OF EXAM ORDERED: 10/31/2021 HISTORY: . Lung cancer screening CT DLP: 62.[address] CTDI: 1.80 mGy Automated exposure control for dose reduction was used. SCREENING VISIT: COMPARISON: None TECHNIQUE: Low dose computed tomography scan was performed through the chest at 1 mm thick sections a nd reconstructed images in multiple planes at 1 mm and [address] DIAGNOSTIC QUALITY: Satisfactory FINDINGS: There are no pleural or parenchymal calcifications. There is biapical pleural-based thickening. Aorta of normal caliber with atherosclerotic changes. Heart size upper limits of normal. No sizable p ericardial effusion. There is mild coronary artery calcification. Small hiatal hernia noted Within the lateral margin of the right upper lobe on coronal image 36 there is a 2 mm pulmonary nodul e also seen on images 64 axial slices. Additional subpleural 2 mm nodules are seen bilaterally. There is a large left adrenal nodule not an indeterminate by noncontrast CT scan. IMPRESSION: 1. Sub-5 mm pulmonary nodules too small to characterize likely benign. 2. Indeterminate left adrenal nodule measuring approximately 1.8 cm. 3. Mild coronary artery calcification. CT LUNG RAD AND CT CHEST RECOMMENDATION: Lung-Rad 2 Benign Appearance or Behavior: Continue annual sc reening with LDCT in 12 months. S Modifier (other clinically significant findings): S
--- NOTE | 2021-10-31 14:26 | CT ---
CT abdomen/adrenal glands. HISTORY: Follow-up adrenal glands mass. COMPARISON: 08/23/2020. TECHNIQUE: Multiple axial images obtained of the abdomen and adrenal glands with and without contrast FINDINGS: The left adrenal gland mass is again seen and is stable in size. The right adrenal gland is normal. The gallbladder is normal and there is no gallstone, gallbladder wall thickening, pericholecystic flu id or distention. There is no biliary ductal dilatation. There is no focal mass involving the liver, pancreas or spleen. The kidneys excrete contrast probably symmetrically and there is no solid renal mass or hydronephrosi s. There is no retroperitoneal adenopathy or hemorrhage in the caliber of the abdominal aorta is norm al. The bowel loops are normal in caliber and there is no evidence of dilatation or obstruction. There is no inflammatory change in the bowel wall or mesentery. There is no free intraperitoneal air or fluid . IMPRESSION: 1. Stable left adrenal mass still favoring a benign etiology. 2. No new abnormalities within the abdomen.
== END | disposition home or self-care (01) ==
LOC: RADCTMAIN 08:25
PROVIDERS: ATTEND Family Medicine
DX: Z12.2 Encounter for screening for malignant neoplasm of respiratory organs (principal); R91.8 Other nonspecific abnormal finding of lung field; E27.8 Other specified disorders of adrenal gland; I25.10 Atherosclerotic heart disease of native coronary artery without angina pectoris; Z87.891 Personal history of nicotine dependence
CPT/HCPCS: 74170; 71271; Q9967

== ENCOUNTER → 2021-10-31 | Outpatient (CLI) | payer BC ==
--- NOTE | 2021-11-03 10:03 | MM ---
Reason for exam: screening (asymptomatic). Last mammogram was performed 1 year and 3 months ago. History: Patient is postmenopausal. Physical Findings: A clinical breast exam by your physician is recommended on an annual basis and results should be correlated with mammographic findings. MG 3D Screening Mammo W/Cad Bilateral CC and MLO view(s) were taken. Prior study comparison: August 16, 2020, right breast MG work up mamm w CAD RT. August 13, 2020, bilateral MG screening mammo w CAD. The breast tissue is heterogeneously dense. This may lower the sensitivity of mammography. Stable benign calcifications. There is no discrete abnormality. No significant changes when compared with prior studies. ASSESSMENT: Benign, BI-RAD 2 RECOMMENDATION: Routine screening mammogram of both breasts in 1 year.
== END | disposition home or self-care (01) ==
LOC: RADMAMWWP 07:43
PROVIDERS: ATTEND Obstetrics & Gynecology Obstetrics
DX: Z12.31 Encounter for screening mammogram for malignant neoplasm of breast (principal); Z78.0 Asymptomatic menopausal state
CPT/HCPCS: 77063; 77067

== ENCOUNTER → 2023-07-21 | Outpatient (CLI) | payer MEDICARE ==
--- NOTE | 2023-07-22 13:51 | MM ---
Reason for Exam: Screening (asymptomatic). Last mammogram was performed 1 year(s) and 9 month(s) ago. Patient History: Menarche at age 14. First Full-Term at age 29. Postmenopausal. Patient has history of breast feeding. Risk Values: Tracey 5 year model risk: 1.9%. NCI Lifetime model risk: 6.7%. Prior Study Comparison: 08/13/2020 Bilateral Screening Mammogram, [facility]. 08/16/2020 Right Diagnostic Mammogram, [facility]. 10/31/2021 Bilateral Screening Mammogram, [facility]. Tissue Density: The breast tissue is heterogeneously dense. This may lower the sensitivity of mammography. Findings: Analyzed By CAD. There is no suspicious group of microcalcifications or new suspicious mass. Overall Assessment: Negative, BI-RAD 1 Management: Screening Mammogram of both breasts in [address] [facility] will attempt to contact patient to return for supplemental views and ultrasound if indicated. Patient should continue monthly self-breast exams. A clinical breast exam by your physician is recommended on an annual basis. This exam should not preclude additional follow-up of suspicious palpable abnormalities. Note on Tracey scores and lifetime risk: 1. A Tracey score greater than 3% is considered moderate risk. If this is the case, consider specialist referral to assess eligibility for a risk reducing agent. 2. If overall lifetime risk for the development of breast cancer is 20% or higher, the patient may qualify for future screening with alternating mammogram and breast MRI. Electronically signed and approved by: Redd Aranda DO
== END | disposition home or self-care (01) ==
LOC: RADMAMWWP 09:37
PROVIDERS: ATTEND Family Medicine
DX: Z12.31 Encounter for screening mammogram for malignant neoplasm of breast (principal); Z78.0 Asymptomatic menopausal state
CPT/HCPCS: 77063; 77067

== ENCOUNTER → 2024-07-24 | Outpatient (CLI) | payer MEDICARE ==
--- NOTE | 2024-07-24 08:34 | MM ---
Reason for Exam: Screening (asymptomatic). Last screening mammogram was performed 12 month(s) ago. Patient History: Menarche at age 14. First Full-Term at age 29. Postmenopausal. Patient has history of breast feeding. Risk Values: Tracey 5 year model risk: 1.9%. NCI Lifetime model risk: 6.4%. Prior Study Comparison: 08/16/2020 Right Diagnostic Mammogram, [facility]. 10/31/2021 Bilateral Screening Mammogram, [facility]. 07/21/2023 Bilateral MG 3D screening mammo w/cad, [facility]. Tissue Density: The breasts are heterogeneously dense, which may obscure small masses. Findings: Analyzed By CAD. Right breast: There is no suspicious group of microcalcifications or new suspicious mass. Left breast: There is no suspicious group of microcalcifications or new suspicious mass. Overall Assessment: Negative, BI-RAD 1 Management: Screening Mammogram of both breasts in [address] [facility] will attempt to contact patient to return for supplemental views and ultrasound if indicated. Patient should continue monthly self-breast exams. A clinical breast exam by your physician is recommended on an annual basis. This exam should not preclude additional follow-up of suspicious palpable abnormalities. Note on Tracey scores and lifetime risk: 1. A Tracey score greater than 3% is considered moderate risk. If this is the case, consider specialist referral to assess eligibility for a risk reducing agent. 2. If overall lifetime risk for the development of breast cancer is 20% or higher, the patient may qualify for future screening with alternating mammogram and breast MRI. [facility], , 07/24/2024 8:31 AM. Electronically signed and approved by: Redd Aranda DO
--- NOTE | 2024-07-24 09:30 | BD ---
EXAMINATION TYPE: Axial Bone Density DATE OF EXAM: 07/24/2024 CLINICAL HISTORY: 69 years old Female. ICD-10 CODE: Z78.0 POST MENOPAUSAL , Additional History: Height: 66 Weight: 163.7 FRAX RISK QUESTIONS: Alcohol (3 or more units per day): yes Family History (Parent hip fracture): no Glucocorticoids (More than 3mos): no (Ex: prednisone, prednisolone, methylprednisolone, dexamethasone, and hydrocortisone). History of Fracture in Adulthood: yes Secondary Osteoporosis: 1. Type 1 Diabetes: no 2. Hyperthyroidism: no 3. Menopause before 45: no 4. Malnutrition: no 5. Chronic liver disease: no Rheumatoid Arthritis: no Current Tobacco Use: no RISK FACTORS HISTORY OF: Surgery to Spine/Hip(right/left)/Wrist (right/left): no EXAM MEASUREMENTS: Bone mineral densitometry was performed using the Helleroy System. Bone mineral density as measured about the Lumbar spine is: ----- L1-L4(G/cm2): 1.384 T Score Values are as follows: ----- L1: 0.9 ----- L2: 0.7 ----- L3: 1.8 ----- L4: 2.8 ----- L1-L4: 1.7 Z Score Values are as follows: ----- L1: 2.2 ----- L2: 2.0 ----- L3: 3.1 ----- L4: 4.1 ----- L1-L4: 3.0 Bone mineral density : baseline Bone mineral density about the R hip (g/cm2): 0.948 Bone mineral density about the L hip (g/cm2): 0.944 T Score values are as follows: -----R Neck: -1.8 -----L Neck: -1.8 -----R Total: -0.5 -----L Total: -0.5 Z Score values are as follows: -----R Neck: -0.5 -----L Neck: -0.4 -----R Total: 0.6 -----L Total: 0.6 Bone mineral density : baseline FRAX%s: The graph provided illustrates a 20.8% chance for a major osteoporotic fx and a 4.0% chance f or the hips probability for fx in 10 years time. IMPRESSION: Osteopenia (T Score between -2.5 and -1). There is slightly increased risk of fracture and the patient may be considered for treatment. Re-Screen 2-5 years. NOTE: T-SCORE=SD OF THE YOUNG ADULT MEAN. [facility], , 07/24/2024 9:28 AM
== END | disposition home or self-care (01) ==
LOC: RADMAMWWP 06:49
PROVIDERS: ATTEND Family Medicine
DX: Z12.31 Encounter for screening mammogram for malignant neoplasm of breast (principal); Z78.0 Asymptomatic menopausal state; R92.333 Mammographic heterogeneous density, bilateral breasts; M85.89 Other specified disorders of bone density and structure, multiple sites
CPT/HCPCS: 77063; 77067; 77080

== ENCOUNTER → 2024-10-24 | Outpatient (CLI) | payer MEDICARE ==
--- NOTE | 2024-10-24 09:25 | CTL ---
EXAMINATION TYPE: CT Low Dose Lung DATE OF EXAM: 10/24/2024 9:14 AM COMPARISON: None. SCREENING VISIT: Initial CT DIAGNOSTIC QUALITY: Limited, but interpretable CLINICAL INDICATION: Female, 69 years old with history of Z12.2 LUNG CA SCREEN F17.210 CURRENT SMOKER , PT SMOKES 1 PK/DAY X 55 YEARS, Lung cancer screening, History of tobacco use. TECHNIQUE: Low dose computed tomography scan was performed through the chest at 1 mm thick sections a nd reconstructed images in the coronal plane at 1 mm thick sections. Contrast used: mL of , (none if empty) Oral contrast used: (none if empty) CT DLP: 71 mGycm, Automated exposure control for dose reduction was used. CT CTDI: 1.87 mGy, Automated exposure control for dose reduction was used. FINDINGS: LUNG NODULES: None. Previous punctate nodularity is not identified. LUNGS: COPD: Severity: None Fibrosis: Severity: None Lymph nodes: None Other findings: None RIGHT PLEURAL SPACE: Effusion: None Calcification: None Thickening: None Pneumothorax: None LEFT PLEURAL SPACE: Effusion: None Calcification: None Thickening: None Pneumothorax: None HEART: Other: Ascending thoracic aorta at the level the main pulmonary artery measures 3.4 cm. The main pul monary artery at the bifurcation measures 2.3 cm. Heart Size: Normal Coronary calcification: Minimal coronary artery calcifications present. Pericardial effusion: None OTHER FINDINGS: Upper abdomen: Left adrenal gland is thickened at 2.0 cm, present previously. Bony thorax: Normal Supraclavicular region: Normal IMPRESSION: 1. No suspicious changes to suggest primary or metastatic neoplasm. 2. Prominent left adrenal gland. FOLLOW UP CT CHEST RECOMMENDATION: Follow-up low-dose CT chest one year CT LUNG RAD: Lung-Rad 2 Benign Appearance or Behavior [facility], , 10/24/2024 9:22 AM
== END | disposition home or self-care (01) ==
LOC: RADCTMAIN 08:40
PROVIDERS: ATTEND Family Medicine
DX: Z12.2 Encounter for screening for malignant neoplasm of respiratory organs (principal); F17.210 Nicotine dependence, cigarettes, uncomplicated
CPT/HCPCS: 71271